=== PATIENT | female | born 1990 | race Caucasian/White ===

== ENCOUNTER 2022-03-01 13:33 | Emergency (ER) | payer OTHER ==
[~2022-03-01] VITALS: Ht 172.7 cm; Wt 77.1 kg
--- NOTE | 2022-03-01 14:01 | NUR ---
DR Cason at the bedside for MSE.
[2022-03-01 14:32] LABS: HEMATOCRIT 37.9 % (31.2-41.9); MEAN CORPUSCULAR HEMOGLOBIN 24.2 uug (24.7-32.8); MEAN CORPUSCULAR VOLUME 73.7 fL (75.5-95.3); PLATELET COUNT (AUTO) 329 K/uL (179-408)
[2022-03-01 14:36] LABS: CREATININE 0.7 mg/dL (0.6-1.3); POTASSIUM 4.6 mmol/L (3.5-5.1)
[2022-03-01 14:42] LABS: BILIRUBIN,DIRECT 0.1 mg/dL (0.0-0.2); BILIRUBIN,TOTAL 0.3 mg/dL (0.2-1.0); TOTAL PROTEIN, SERUM 8.1 g/dL (6.4-8.2)
[2022-03-01 14:50] LABS: THYROID STIMULATING HORMONE 1.281 mIU/mL (0.358-3.740)
[2022-03-01 15:11] VITALS: BP 123/76
--- NOTE | 2022-03-01 15:11 | NUR ---
Patient discharged to home in stable condition. Written and verbal after care instructions given. Patient verbalizes understanding of instructions. Stressed follow up or return to ER for worsening s/s.
== END 2022-03-01 15:12 | disposition home or self-care (01) ==
LOC: ER 13:33
DX: R51.9 Headache, unspecified (principal); R03.0 Elevated blood-pressure reading, without diagnosis of hypertension
CPT/HCPCS: 36415; 84443; 85025; A4663